=== PATIENT | female | born 1945 | race Caucasian/White ===

== ENCOUNTER 2017-05-06 08:30 | Observation (INO) | payer OTHER ==
[~2017-05-06 08:30] MED LIST: ACETAMINOPHEN 500 MG TAB PO ONE; PHENAZOPYRIDINE HCL 100 MG TAB PO ONE; PHENAZOPYRIDINE HCL 200 MG TAB PO ONE
[2017-05-06] MEDS ORDERED: ceFAZolin 2 GM/DEXTROSE 100 ML IV ONE (08:53)
[2017-05-06] MEDS ORDERED: LIDOCAINE 1% 2 ML INJ ID PRN (08:54)
[2017-05-06] MEDS ORDERED: LR 1,000 ML IV ONE (08:54)
[2017-05-06] MEDS ORDERED: LIDOCAINE 1% 2 ML INJ ONE (08:56)
[2017-05-06] MEDS ORDERED: PHENAZOPYRIDINE HCL 200 MG TAB ONE (09:27)
[2017-05-06] MEDS ORDERED: ACETAMINOPHEN 500 MG TAB ONE (09:27)
[2017-05-06] MEDS ORDERED: ceFAZolin 2 GM/SWFI 2 GM/20 ML SYR IVP ONE (09:30)
--- NOTE | 2017-05-06 09:39 | PDHPUP ---
History & Physical Update H&P update statement: This history and physical update is based on an assessment of the patient which was completed after admission or registration (within 24 hours), but prior to the surgery/procedure. H&P update: H&P reviewed & patient examined, no change in patient's condition since H&P completed
[2017-05-06] MEDS ORDERED: BUPIVACAINE 0.5% 30 ML SDV ONE (10:04)
[2017-05-06] MEDS ORDERED: fentaNYL 100 MCG/2 ML INJ ONE ×3 (10:19→12:52)
[2017-05-06] MEDS ORDERED: PROPOFOL/EMULSION 500 MG/50 ML BOTTLE IV ONE (10:20)
[2017-05-06] MEDS ORDERED: epHEDrine SULFATE 10 MG/ML SYR ONE (10:40)
[2017-05-06] MEDS ORDERED: KETOROLAC 30 MG/1 ML SDV ONE (10:40)
[2017-05-06] MEDS ORDERED: LIDOCAINE 2% 5 ML SDV ONE (10:40)
[2017-05-06] MEDS ORDERED: ONDANSETRON 4 MG/2 ML VIAL ONE (10:40)
[2017-05-06] MEDS ORDERED: PHENYLEPHRINE HCL 100 MCG/ML SYR ONE (10:40)
[2017-05-06] MEDS ORDERED: RANITIDINE 50 MG/2 ML VIAL ONE (10:40)
[2017-05-06] MEDS ORDERED: SUGAMMADEX SODIUM 200 MG/2 ML VIAL IVP ONE (10:40)
[2017-05-06] MEDS ORDERED: ROCURONIUM 50 MG/5 ML VIAL ONE ×2 (10:40→11:49)
--- NOTE | 2017-05-06 10:54 | PDANEPAE ---
ANE Past Medical History - Cardiovascular History Hx Hypertension: Yes Hx Arrhythmias: Yes Hx Chest Pain: Yes Cardiovascular History Comment: PT TO GET [facility] [employer] [facility] 04/19 - Pulmonary History Hx COPD: No Hx Asthma/Reactive Airway Disease: No Hx Recent Upper Respiratory Infection: No Hx Oxygen in Use at Home: No Hx Sleep Apnea: No Sleep Apnea Screening Result - Last Documented: Negative - Neurologic History Hx Cerebrovascular Accident: No Hx Seizures: No Hx Dementia: No - Endocrine History Hx Diabetes: No - Renal History Hx Renal Disorders: No - Liver History Hx Hepatic Disorders: No - Neurological & Psychiatric Hx Hx Neurological and Psychiatric Disorders: No - Cancer History Hx Cancer: No - Congenital Disorder History Hx Congenital Disorders: No - GI History Hx Gastrointestinal Disorders: Yes Gastrointestinal History Comment: BLOATING, IRREGULAR STOOL - Other Health History Other Health History: NONE - Chronic Pain History Chronic Pain: No - Surgical History Prior Surgeries: NONE ANE Review of Systems Review of Systems: - Exercise capacity METS (RN): 3 METS ANE Patient History - Allergies Allergies/Adverse Reactions: ANTIBIOTIC Allergy (Uncoded 03/30/17 17:10) - Home Medications Home Medications: Aspirin EC [Aspirin EC 81 mg (*)] 81 mg PO DAILY 03/30/17 [Last Taken 04/28/17] Herbals/Supplements -Info Only 1 ea PO DAILY 03/30/17 [Last Taken 05/03/17] Lisinopril [Zestril 20 mg (*)] 20 mg PO DAILY 03/30/17 [Last Taken 05/06/17 07: 25] Melatonin [Melatonin 3 MG (*)] 3 mg PO HS 03/30/17 [Last Taken 05/03/17] Nebivolol HCl [Bystolic 5 mg (*)] 5 mg PO DAILY 03/30/17 [Last Taken Unknown] Amlodipine Besylate 5 mg PO 05/06/17 [Last Taken 05/06/17 07:25] Hydrochlorothiazide 25 mg PO DAILY 05/06/17 [Last Taken 05/06/17 07:25] - NPO status NPO Since - Liquids (Date): 05/05/17 NPO Since - Liquids (Time): 07:35 NPO Since - Solids (Date): 05/05/17 NPO Since - Solids (Time): 23:30 - Smoking Hx Smoking Status: Never smoked - Family Anes Hx Family Hx Anesthesia Complications: NONE ANE Labs/Vital Signs - Vital Signs Blood Pressure: 119/68 Heart Rate: 65 Respiratory Rate: 16 O2 Sat (%): 95 Height: 167.64 cm Weight: 54.885 kg ANE Physical Exam - Airway Neck exam: FROM Mallampati Score: Class 1 Mouth exam: normal dental/mouth exam - Pulmonary Pulmonary: no respiratory distress, no rales or rhonchi, clear to auscultation - Cardiovascular Cardiovascular: regular rate and rhythym, no murmur, rub, or gallop - ASA Status ASA Status: III ANE Anesthesia Plan Anesthesia Plan: general endotracheal anesthesia
[2017-05-06] MEDS ORDERED: ONDANSETRON 4 MG/2 ML VIAL IVP PRN ×2 (11:44→13:12)
[2017-05-06] MEDS ORDERED: MEPERIDINE 25 MG/ML SYR IVP PRN (11:44)
[2017-05-06] MEDS ORDERED: PROMETHAZINE HCL 25 MG/ML INJ IVP PRN ×2 (11:44→13:12)
[2017-05-06] MEDS ORDERED: ENALAPRILAT DIHYDRATE 1.25 MG/ML VIAL IV PRN (11:44)
[2017-05-06] MEDS ORDERED: ALBUTEROL 3 ML DEYVIAL IH PRN (11:44)
[2017-05-06] MEDS ORDERED: NALOXONE HCL 0.4 MG/ML INJ IVP PRN (11:44)
[2017-05-06] MEDS ORDERED: LR 500 ML IV PRN (11:44)
[2017-05-06] MEDS: fentaNYL 100 MCG/2 ML INJ IVP PRN ×2 (12:56→14:08)
--- NOTE | 2017-05-06 13:11 | POSTOPPROG ---
Post Op Note Date of Operation: 05/06/17 Surgeon: Jhony Glover Miniature Set Designer: Yasmine Jay Anesthesiologist: Matilda Francis Anesthesia: GET(General Endotracheal) Pre-op Diagnosis: uterovaginal prolapse, stress incontinence Post-op Diagnosis: Same Procedure: robotic hyst, sacrocolpopexy, TOT sling, cysto Findings: ureters function at end of case Inf/Abcess present in the surg proc area at time of surgery?: No EBL: Minimal Complications: None
[2017-05-06] MEDS ORDERED: HYDROCODONE/APAP 5/325 TAB PO PRN (13:12)
[2017-05-06] MEDS ORDERED: DIAZEPAM 10 MG/2 ML SYR IVP PRN (13:12)
[2017-05-06] MEDS ORDERED: HYDROmorphONE/DILAUDID 1 MG/ML INJ IVP PRN (13:12)
--- NOTE | 2017-05-06 13:40 | POSTANESTH ---
Post Anesthetic Evaluation Cardiovascular Status: Normal, Stable Respiratory Status: Normal, Stable Level of Consciousness/Mental Status: Mildly Sleepy, Arousable Pain Control: Adequate, Prn Tx Ordered Nausea/Vomiting Control: Adequate, Prn Tx Ordered Complications Possibly Related to Anesthesia: None Noted
--- NOTE | 2017-05-06 14:04 | GOP ---
[f rep st] OPERATIVE REPORT DATE OF OPERATION: 05/06/2017 SURGEON: Jhony Glover MD BIOLOGICAL SCIENCE TECHNICIAN FISH: Yasmine Jay CFA. ANESTHESIA: General. PREOPERATIVE DIAGNOSIS: 1. Cystocele. 2. Rectocele. 3. Uterine prolapse. 4. Stress urinary incontinence. POSTOPERATIVE DIAGNOSIS: 1. Cystocele. 2. Rectocele. 3. Uterine prolapse. 4. Stress urinary incontinence. PROCEDURE PERFORMED: 1. Robotic-assisted laparoscopic hysterectomy, bilateral salpingectomy. 2. Robotic-assisted laparoscopic sacrocervicopexy with mesh. 3. Repair of cystocele and rectocele. 4. Transobturator sling. 5. Cystoscopy. FINDINGS: SPECIMENS: Uterus, bilateral tubes. ESTIMATED BLOOD LOSS: Scant. DESCRIPTION OF PROCEDURE: The patient was taken to the operating where she was identified. General anesthesia was administered and found to be adequate. She was placed in the lithotomy position and p repared and draped in normal sterile fashion. A Andrews cath was placed in her bladder. A 1 cm infraumbilical incision was made with a scalpel. The Veress needle with a CO2 gas flowing was advanced into the peritoneal cavity. The abdomen was then insufflated with carbon dioxide gas. The 12 mm trocar followed by the laparoscope were then inserted. The upper abdomen was unremarkable. T wo lateral ports were placed on either side under direct visualization. She then was placed in Trend elenburg position and the da Jason robot docked on the left side. The instruments were then brought into the abdominal cavity under direct visualization. The left fallopian tube was along the mesosalpinx. The utero-ovarian ligament, followed by the round ligament, were then cauterized and transected. The anterior leaf of the broad ligament wa s then incised over the left uterine vessels and across the cervix. The bladder was gently dissected off the cervix and upper vagina. The left uterine vasculature was then cauterized and transected. The exact same procedure was performed on the patient's right side. The uterus was then bivalved to aid in removal through the umbilicus. The uterus and upper 3/4 of the cervix were amputated from the lower 1/4 of the cervix with the hot chidi. The specimen was then placed in the right upper quadra nt for later removal. The Colpo-Probe was placed in the vagina. The bladder was further dissected off the anterior vaginal wall down to the level of bladder neck. The rectum was dissected off the posterior vaginal wall myriam n to the level of the perineal body. Measurements were then obtained and the mesh trimmed to size. The sigmoid colon was retracted laterally. The peritoneum of the sacral promontory was incised and t he fat pad gently dissected off the anterior longitudinal ligament. The mesh was then brought into t he abdominal cavity. Three sutures of 4-0 [place] were used to attach the distal posterior mesh to the perineal body. Two additional rows of [place] sutures were placed posteriorly. Three rows were placed anteriorly to suture the mesh down to the level of the bladder neck and laterally to the para vaginal tissue. The Colpo-Probe was then removed. The sacral arm of the mesh was placed over the pr omontory and the tension adjusted. I then scrubbed back into the case to examine the vagina. The te nsion was further adjusted to resolve the cystocele and rectocele without undue tension on the vagina . Three sutures of 2-0 [place] were used to attach the sacral arm of the mesh to the anterior longi tudinal ligament at the level of the upper first sacral vertebral body. The peritoneum was then clos ed over the entire mesh. The robot was then undocked. The specimen removed through the umbilicus. The fascia was closed with 0 Vicryl, skin with 4-0 Monocryl and surgical adhesive. Attention was then turned to the vaginal portion the procedure. A mid urethral incision was made wit h a scalpel. Tunnels were created bilaterally out to the obturator internus muscles. Skin incisions were made over the obturator notches. The Halo trocar was placed through the left skin incision, re directed around the ischial pubic rami and out through the vaginal incision using a vaginal finger as a guide. The lateral sulci were examined, and no evidence of vaginal injury had occurred. The slin g was then attached and brought out along the same course. The exact same procedure was performed on the patient's right side. The sling was then adjusted to allow a small mid urethral gap. The vagin al epithelium was then closed with 2-0 Vicryl, skin with 4-0 Monocryl. Cystoscopy was then performed. Both ureters had vigorous jets of urine. There was no evidence of bl adder nor urethral injury seen. No mesh nor suture was seen within the bladder nor urethra. No obvi ous pathology was seen. Vaginal packing was then placed. Anesthesia was reversed, and the patient t aken the PACU awake, in stable condition. COMPLICATIONS: None. DISPOSITION: Patient stable to PACU. /[id number]/MODL
[2017-05-06] MEDS: LR 1,000 ML IV SCH (16:23)
[2017-05-06] MEDS: KETOROLAC 15 MG/1 ML SDV IVP SCH (18:22)
[2017-05-06] MEDS: SIMETHICONE 80 MG TAB CHEW PO SCH ×2 (18:33→21:19)
[2017-05-06] MEDS: DOCUSATE SODIUM 100 MG CAP PO SCH (21:19)
[2017-05-07] MEDS: KETOROLAC 15 MG/1 ML SDV IVP SCH ×3 (00:16→11:45)
[2017-05-07] MEDS: LR 1,000 ML IV SCH (00:58)
[2017-05-07] MEDS: SIMETHICONE 80 MG TAB CHEW PO SCH ×3 (04:25→08:51)
[2017-05-07] MEDS: DOCUSATE SODIUM 100 MG CAP PO SCH (08:52)
[2017-05-07] MEDS ORDERED: amLODIPine BESYLATE 5 MG TAB PO SCH (09:00)
[2017-05-07] MEDS ORDERED: HYDROCHLOROTHIAZIDE 25 MG TAB PO SCH (09:00)
[2017-05-07] MEDS ORDERED: LISINOPRIL 20 MG TAB PO SCH (09:00)
[2017-05-07] MEDS ORDERED: NEBIVOLOL HCL 5 MG TAB PO SCH (09:00)
[2017-05-07 10:34] VITALS: BP 91/56; PULSE 67; RESP 17; TEMP 98; O2SAT 96
== END 2017-05-07 13:25 | disposition home or self-care (01) ==
LOC: F3E 08:30 → FOB 14:46
PROVIDERS: ADMIT Obstetrics & Gynecology; ATTEND Obstetrics & Gynecology
DX: N81.2 Incomplete uterovaginal prolapse (principal); N81.11 Cystocele, midline; N81.6 Rectocele; N39.3 Stress incontinence (female) (male); I10 Essential (primary) hypertension
CPT/HCPCS: 57250; 57288; 57425; 58542; G0378; C1763; C1771; J0690; J1170; J1885; J2370; J2405; J2704; J2780; J3010